=== PATIENT | female | born 2000 | race Caucasian/White ===

== ENCOUNTER → 2023-04-10 | Outpatient (CLI) | payer OTHER ==
[~2023-04-10] MED LIST: AMOX875 PO; HYDR1TAB94 PO; Vitamin C100 M1 PO; [UNRECOGNIZED DRUG - OTHER] PO
== END | disposition home or self-care (01) ==
LOC: LAB SHORT 17:00 → LAB 17:00
DX: N39.0 Urinary tract infection, site not specified (principal)
CPT/HCPCS: 87086

== ENCOUNTER → 2024-03-11 | Outpatient (CLI) | payer OTHER | END | disposition home or self-care (01) | LOC: LAB SHORT 15:34 | DX: N39.0 Urinary tract infection, site not specified (principal) | CPT/HCPCS: 87077; 87086; 87186 ==

== ENCOUNTER → 2024-06-03 | Outpatient (CLI) | payer BC | LOC: LAB SHORT 16:37 → LAB 16:37 | DX: N89.8 Other specified noninflammatory disorders of vagina (principal) | CPT/HCPCS: 87070; 87205 ==